=== PATIENT | female | born 1995 | race Native Hawaiian/Other Pacific Islander ===

== ENCOUNTER 2022-02-05 18:05 | Emergency (ER) | payer OTHER ==
[~2022-02-05] VITALS: Ht 147.3 cm; Wt 81.6 kg
[2022-02-05 19:50] VITALS: BP 127/91; TEMP 98.9
== END 2022-02-05 19:50 | disposition home or self-care (01) ==
LOC: ED 18:05
DX: L30.8 Other specified dermatitis (principal)
CPT/HCPCS: 96372; 99283; J1100

== ENCOUNTER 2022-07-10 20:07 | Emergency (ER) | payer OTHER ==
[~2022-07-10] VITALS: Ht 147.3 cm; Wt 81.6 kg
[2022-07-10 21:51] VITALS: BP 134/81; TEMP 98.6
== END 2022-07-10 21:51 | disposition home or self-care (01) ==
LOC: ED 20:07
DX: M19.071 Primary osteoarthritis, right ankle and foot (principal)
CPT/HCPCS: 99282

== ENCOUNTER 2023-01-16 18:45 | Emergency (ER) | payer OTHER ==
[~2023-01-16] VITALS: Ht 147.3 cm; Wt 88.5 kg
[2023-01-16 18:45] VITALS: BP 125/77; TEMP 99.8
== END 2023-01-16 20:01 | disposition home or self-care (01) ==
LOC: ED 18:45
DX: L02.212 Cutaneous abscess of back [any part, except buttock and flank] (principal)
CPT/HCPCS: 96372; 99283; J1885